=== PATIENT | female | born 1985 | race Caucasian/White ===

== ENCOUNTER 2018-07-13 21:18 | Emergency (ER) | payer BC ==
[~2018-07-13] VITALS: Ht 167.6 cm; Wt 86.2 kg
[2018-07-14] MEDS ORDERED: TAMIFLU75 MG PO (00:39)
[2018-07-14 01:02] VITALS: BP 160/78
== END 2018-07-14 01:04 | disposition home or self-care (01) ==
LOC: ER 21:18
DX: S00.81XA Abrasion of other part of head, initial encounter (principal); J10.1 Influenza due to other identified influenza virus with other respiratory manifestations; H05.231 Hemorrhage of right orbit; R00.0 Tachycardia, unspecified; Z98.890 Other specified postprocedural states; Z90.49 Acquired absence of other specified parts of digestive tract; W01.198A Fall on same level from slipping, tripping and stumbling with subsequent striking against other object, initial encounter; Y92.89 Other specified places as the place of occurrence of the external cause; Y93.89 Activity, other specified; Y99.8 Other external cause status